=== PATIENT | female | born 1990 | race Caucasian/White ===

== ENCOUNTER 2016-11-23 07:51 | Inpatient (IN) | payer BC ==
[~2016-11-23] VITALS: Ht 165.1 cm; Wt 88.6 kg
[~2016-11-23 07:51] MED LIST: OXYTOCIN 10 UNIT INJ IM ONE
[2016-11-23] MEDS ORDERED: OXYTOCIN 10 UNIT INJ ONE (07:54)
[2016-11-23] MEDS ORDERED: LIDOCAINE 1% (MPF) 30 ML INJ ONE (07:58)
[2016-11-23] MEDS ORDERED: LACTATED RINGER'S 1,000 ML IV PRN (08:00)
[2016-11-23] MEDS: IBUPROFEN 600 MG TAB PO SCH ×3 (08:00→17:42)
[2016-11-23] MEDS ORDERED: LACTATED RINGER'S 1,000 ML IV SCH (08:01)
[2016-11-23 08:18] LABS: ADD SCAN DIFF NO
[2016-11-23 08:21] LABS: BASOPHILS % 0.3 % (0.0-2.0); EOSINOPHILS # 0.1 10^3/ul (0.0-0.5); EOSINOPHILS % 0.7 % (0.0-7.0); HEMATOCRIT 37.9 % (37.0-47.0); LYMPHOCYTES # 2.3 10^3/ul (0.8-2.9); LYMPHOCYTES % 25.3 % (15.0-51.0); MEAN CORPUSCULAR HEMOGLOBIN 28.9 pg (29.0-33.0); MEAN CORPUSCULAR HGB CONC 34.3 g/dl (32.0-37.0); MEAN CORPUSCULAR VOLUME 84.2 fl (82.0-101.0); MEAN PLATELET VOLUME 10.1 fl (7.4-10.4); MONOCYTE # 0.4 10^3/ul (0.3-0.9); MONOCYTES % 4.6 % (0.0-11.0); NEUTROPHIL # 6.3 10^3/ul (1.6-7.5); NEUTROPHILS % 68.7 % (39.0-77.0); PLATELET COUNT 184 10^3/UL (140-415); RED CELL DISTRIBUTION WIDTH 13.2 % (11.5-14.5); WHITE BLOOD COUNT 9.1 10^3/ul (4.8-10.8)
[2016-11-23] MEDS ORDERED: OXYTOCIN 30 UNITS/LR 500 ML IV SCH ×2 (08:30)
[2016-11-23] MEDS ORDERED: MISOPROSTOL 200 MCG TAB PR PRN ×2 (08:30→11:00)
[2016-11-23] MEDS ORDERED: CARBOPROST 250 MCG INJ IM PRN ×2 (08:30→11:00)
[2016-11-23] MEDS ORDERED: OXYTOCIN 30 UNITS/LR 500 ML IV PRN ×2 (08:30→11:00)
[2016-11-23] MEDS ORDERED: METHYLERGONOVINE 0.2 MG INJ IM PRN ×2 (08:30→11:00)
[2016-11-23] MEDS ORDERED: LIDOCAINE 1% (MPF) 30 ML INJ INJ PRN (08:30)
[2016-11-23] MEDS ORDERED: IBUPROFEN 600 MG TAB PO PRN (08:30)
--- NOTE | 2016-11-23 08:48 | HP ---
Date/Time of Note Date/Time of Note DATE: 11/23/16 TIME: 08:42 OB - History Hx of Present Chief Complaint: contractions Estimated Due Date: Nov 30, 2016 : 2 Para: 1 Spontaneous : 0 Therapeutic : 0 Care: Good Care Ultrasounds: Normal mid trimester US Obstetrical Complications: None Medical Complications: None Past Family/Social History * Past Medical, Surgical, Family and Obstetric Histories reviewed from chart. GBS Status: Unknown OB Admission Exam Physical Exam HEENT: WNL Heart: Rhythm Normal Lungs: Clear Abdomen: WNL Extremities: Normal Cervical Dilatation: 9cm Effacement: 100% Station: -1 Membranes: Intact Heart Rate: 130's Accelerations: Accelerations Present Last 72 hours Lab Results CBC & BMP 11/23/16 08:00 OB Assessment/Plan Reason for admission: active labor Plan: Expectant Management ISAIAH LÓPEZ MD Nov 23, 2016 08:47
[2016-11-23 08:54] VITALS: Ht 165.1 cm; Wt 88.6 kg
[2016-11-23 08:55] VITALS: BP 126/75; RESP 18
[2016-11-23 08:55] LABS: INR 0.88; PROTIME 11.9 Sec (12.2-14.2); PT RATIO 0.9
[2016-11-23] MEDS ORDERED: WITCH HAZEL/GLYCERIN PAD PR PRN (11:00)
[2016-11-23] MEDS ORDERED: BENZOCAINE 20% 56 ML SPRAY TOP PRN (11:00)
[2016-11-23] MEDS ORDERED: DIBUCAINE 1% 30 GM OINT PR PRN (11:00)
[2016-11-23] MEDS ORDERED: ACETAMINOPHEN 325 MG TAB PO PRN (11:00)
[2016-11-23] MEDS ORDERED: ACETAMINOPHEN/CODEINE #3 TAB PO PRN (11:00)
[2016-11-23] MEDS: LACTATED RINGER'S 1,000 ML IV* SCH ×2 (12:24→18:38)
--- NOTE | 2016-11-23 13:08 | LDN ---
Date/Time of Note Date/Time of Note DATE: 11/23/16 TIME: 13:05 Delivery Summary called by RN due to urgent feeling pushing by the patient. Primary attending was in his way and may not be able to attend for delivery. Patient 's exam: C/C + 3 Placenta Delivered: Spontaneously Meconium: none Episiotomy: No Perineal laceration: 2 Laceration repair: repaired using 2-0 vicryl Anesthesia type: None Estimated blood loss: 100 Sponge & Needle done & correct: Yes All needle counts correct: Yes Any foreign bodies felt in the: No Problems: Infant Delivery Information Apgars 1 Minute: 8 5 Minute: 9 Suctioning Nose & mouth suctioned at [place]: Yes Delee suction performed: Yes Umbilical Cord Umbilical cord with: 3 Vessels Cord presentations: no nuchal cord Cord Blood was obtained: Yes LILY MOLINA MD Nov 23, 2016 13:08
[2016-11-23 16:00] VITALS: BP 116/64; RESP 18
[2016-11-23 20:00] VITALS: BP 121/71; PULSE 76; RESP 16
[2016-11-24] MEDS: LACTATED RINGER'S 1,000 ML IV* SCH ×3 (02:38→18:38)
[2016-11-24 04:00] VITALS: BP 108/61; PULSE 67; RESP 18
[2016-11-24 07:54] LABS: ADD SCAN DIFF NO
[2016-11-24 08:09] LABS: BASOPHIL # 0.1 10^3/ul (0.0-0.1); BASOPHILS % 0.5 % (0.0-2.0); EOSINOPHILS # 0.1 10^3/ul (0.0-0.5); EOSINOPHILS % 0.8 % (0.0-7.0); HEMATOCRIT 37.1 % (37.0-47.0); HEMOGLOBIN 12.5 g/dl (12.0-16.0); LYMPHOCYTES # 2.3 10^3/ul (0.8-2.9); LYMPHOCYTES % 21.3 % (15.0-51.0); MEAN CORPUSCULAR HEMOGLOBIN 28.5 pg (29.0-33.0); MEAN CORPUSCULAR HGB CONC 33.7 g/dl (32.0-37.0); MEAN CORPUSCULAR VOLUME 84.5 fl (82.0-101.0); MEAN PLATELET VOLUME 10.6 fl (7.4-10.4); MONOCYTE # 0.6 10^3/ul (0.3-0.9); MONOCYTES % 5.5 % (0.0-11.0); NEUTROPHIL # 7.9 10^3/ul (1.6-7.5); NEUTROPHILS % 71.5 % (39.0-77.0); PLATELET COUNT 173 10^3/UL (140-415); RED BLOOD COUNT 4.39 10^6/ul (4.20-5.40); RED CELL DISTRIBUTION WIDTH 13.2 % (11.5-14.5)
[2016-11-24 08:20] VITALS: BP 99/62; PULSE 72; RESP 16
[2016-11-24] MEDS: SENNA/DOCUSATE NA (8.6MG/50MG) TAB PO SCH ×3 (10:05→21:32)
[2016-11-24] MEDS: IBUPROFEN 600 MG TAB PO SCH ×3 (12:14→18:11)
[2016-11-24 15:33] VITALS: BP 116/71; PULSE 87; RESP 16
--- NOTE | 2016-11-24 18:50 | DS ---
Date/Time of Note Date/Time of Note DATE: 11/24/16 TIME: 18:49 Obstetrical Discharge Record Final Diagnosis Final Diagnosis: Term delivered Vaginal Delivery Obstetrical Delivery: Spontaneous, Laceration, Repaired Condition on Discharge Physical Assessment Voiding: Yes Bowel Movement: Yes Breast: Soft, non-tender Fundus: Firm Calf Tenderness: No Patient Condition: Stable ISAIAH LÓPEZ MD Nov 24, 2016 18:50
[2016-11-24 20:00] VITALS: BP 119/72; PULSE 70; RESP 18
[2016-11-25] MEDS: IBUPROFEN 600 MG TAB PO SCH ×2 (00:39→06:20)
[2016-11-25] MEDS: LACTATED RINGER'S 1,000 ML IV* SCH (02:38)
[2016-11-25 04:00] VITALS: BP 118/73; PULSE 72; RESP 18
[2016-11-25 08:30] VITALS: BP 114/69; PULSE 74; RESP 16
[2016-11-25] MEDS ORDERED: DIPHTH/TET/ACEL PERTUSS (ADULT) 0.5 ML VIAL IM* ONE (09:00)
[2016-11-25] MEDS: SENNA/DOCUSATE NA (8.6MG/50MG) TAB PO SCH (10:00)
== END 2016-11-25 12:25 | disposition home or self-care (01) | DRG 775 ==
LOC: L-D 07:51 → PP1 10:41 → EDSTATUS 11-30 07:50
PROVIDERS: ADMIT Obstetrics & Gynecology; ATTEND Obstetrics & Gynecology
PROC: 10E0XZZ Delivery of Products of Conception, External Approach (ICD-10-PCS; principal; 2016-11-23)
PROC: 0KQM0ZZ Repair Perineum Muscle, Open Approach (ICD-10-PCS; 2016-11-23)
PROC: 3E0234Z Introduction of Serum, Toxoid and Vaccine into Muscle, Percutaneous Approach (ICD-10-PCS; 2016-11-25)
DX: O70.1 Second degree perineal laceration during delivery (principal); Z37.0 Single live birth; Z23 Encounter for immunization; Z3A.39 39 weeks gestation of pregnancy
CPT/HCPCS: 85025; 85610; 85730; 86592; 86900; 86901; 87340; 90715; J2590; J7120

== ENCOUNTER 2018-09-01 10:39 | Emergency (ER) | payer BC ==
[~2018-09-01] VITALS: Ht 165.1 cm; Wt 80.0 kg
[2018-09-01 10:44] VITALS: BP 114/59; PULSE 62; RESP 16; Ht 165.1 cm; Wt 80.0 kg
[2018-09-01] MEDS ORDERED: BEN25 PO (11:43)
[2018-09-01] MEDS ORDERED: CETI1TAB6 PO (11:43)
--- NOTE | 2018-09-01 11:45 | ERD ---
ER Documentation Chief Complaint Chief Complaint pt bib self with c/o bilat ear pain, sinus pressure x 2 wks HPI 27-year-old female is here complaining of allergies symptoms including itchiness in her throat and ears and eyes. No fever. No cough. Has not tried any other medications. ROS All systems reviewed and are negative except as per history of present illness. Medications Home Meds Active Scripts Cetirizine/Pseudoephedrine (Zyrtec-D) 5-120 Mg Tab.er.12h, 1 TAB PO Q12, #30 TAB Prov:JUAN JOHNSON PA-C 09/01/18 Diphenhydramine Hcl* (Benadryl*) 25 Mg Cap, 25 MG PO Q6, #30 CAP Prov:JUAN JOHNSON PA-C 09/01/18 Allergies Allergies: Coded Allergies: No Known Allergies (Verified Allergy, Unknown, 08/09/16) PMhx/Soc Medical and Surgical Hx: pt denies Medical Hx, pt denies Surgical Hx History of Surgery: No Anesthesia Reaction: No Hx Neurological Disorder: No Hx Respiratory Disorders: No Hx Cardiac Disorders: No Hx Psychiatric Problems: No Hx Miscellaneous Medical Probl: No Hx Alcohol Use: Yes (Occ) Hx Substance Use: No Hx Tobacco Use: Yes (Occ) Smoking Status: Current some day smoker FmHx Family History: No diabetes Physical Exam Vitals Vital Signs Date Temp Pulse Resp B/P (MAP) Pulse Ox O2 O2 Flow FiO2 Time Delivery Rate 09/01/18 98.0 62 16 114/59 99 10:44 (77) Physical Exam Const: No acute distress Head: Atraumatic Eyes: Normal Conjunctiva ENT: Normal External Ears, Nose and Mouth. Neck: Full range of motion. No meningismus. Resp: Clear to auscultation bilaterally Cardio: Regular rate and rhythm, no murmurs Procedures/MDM Patient presents with symptoms related to seasonal allergies. Prescription for Benadryl and Zyrtec given. Exam is normal. Patient counseled regarding my diagnostic impression and care plan. Prior to discharge all questions answered. Pt agrees with treatment plan and understands strict return precautions. Pt is instructed to follow up with primary care provider within 24-48 hours. Precautionary instructions provided including instructions to return to the ER if not improving or for any worsening or changing symptoms or concerns. Departure Diagnosis: Primary Impression: Seasonal allergies Condition: Stable Patient Instructions: Allergic Rhinitis Additional Instructions: Llame al doctor MAANA y prashanth serenity DAYO PARA DENTRO DE 1-2 YUSUF.Dgale a la secretaria que nosotros le instruimos hacer esta dayo.Avise o llame si agarwal condicin se empeora antes de la dayo. Regresa aqui si peor o no mejor.Call your primary care doctor TOMORROW for an appointment during the next 1-2 days.See the doctor sooner or return here if your condition worsens before your appointment time. JUAN JOHNSON PA-C Sep 01, 2018 11:45
== END 2018-09-01 12:09 | disposition home or self-care (01) ==
LOC: FTE 10:39
DX: J30.2 Other seasonal allergic rhinitis (principal)
CPT/HCPCS: 99282

== ENCOUNTER 2018-12-31 11:32 | Emergency (ER) | payer BC ==
[~2018-12-31] VITALS: Ht 165.1 cm; Wt 85.8 kg
[~2018-12-31 11:32] MED LIST changes: +BEN25 PO; +CETI1TAB6 PO; +NAPR-985 PO; -OXYTOCIN 10 UNIT INJ IM ONE
[2018-12-31 11:35] VITALS: RESP 16; Ht 165.1 cm; Wt 85.8 kg
[2018-12-31 12:45] VITALS: BP 146/78; PULSE 72
--- NOTE | 2018-12-31 13:10 | ERD ---
ER Documentation Chief Complaint Chief Complaint LUMP ON LT SIDE OF NECK X 6 MO W/ PAIN THERE TODAY. WEIRD FEELING IN HEAD HPI 28-year-old female presenting with a lump on the left side of her neck x7 months. Patient states it is mildly painful and she noted sometimes it gets larger and sometimes it gets smaller. She occasionally has a headache. She denies any vomiting. Denies use of medications. Denies other medical problems. NKDA. Surgical history denies. Social history smokes 5 cigarettes a day ROS All systems reviewed and are negative except as per history of present illness. Medications Home Meds Active Scripts Naproxen* (Naprosyn*) 500 Mg Tablet, 500 MG PO BID PRN for PAIN AND/OR INFLAMMATION, #30 TAB Prov:JASON ROCA PA-C 12/31/18 Cetirizine/Pseudoephedrine (Zyrtec-D) 5-120 Mg Tab.er.12h, 1 TAB PO Q12, #30 TAB Prov:JUAN JOHNSON PA-C 09/01/18 Diphenhydramine Hcl* (Benadryl*) 25 Mg Cap, 25 MG PO Q6, #30 CAP Prov:JUAN JOHNSON PA-C 09/01/18 Allergies Allergies: Coded Allergies: No Known Allergies (Verified Allergy, Unknown, 08/09/16) PMhx/Soc History of Surgery: No Anesthesia Reaction: No Hx Neurological Disorder: No Hx Respiratory Disorders: No Hx Cardiac Disorders: No Hx Psychiatric Problems: No Hx Miscellaneous Medical Probl: No Hx Alcohol Use: Yes (Occ) Hx Substance Use: No Hx Tobacco Use: Yes (Occ) Smoking Status: Current some day smoker FmHx Family History: No diabetes, No coronary disease, No other Physical Exam Vitals Vital Signs Date Temp Pulse Resp B/P (MAP) Pulse Ox O2 O2 Flow FiO2 Time Delivery Rate 12/31/18 72 146/78 12:45 (100) 12/31/18 97.8 94 16 154/70 100 11:35 (98) Physical Exam GENERAL: The patient is well-appearing, well-nourished, in no acute distress HEENT: Atraumatic. Conjunctivae are pink. Pupils equal, round, and reactive to light. There is no scleral icterus. Tympanic membranes clear bilaterally. Oropharynx clear. NECK: Small nodule noted on left-sided neck in line with the cervical lymph nodes. Pea-sized shape with no irregularities noted. No fluctuance and no erythema. No tenderness to palpation. CHEST: Clear to auscultation bilaterally. There are no rales, wheezes or rhonchi. HEART: Regular rate and rhythm. No murmurs, clicks, rubs or gallops. SKIN: There is no apparent rash or petechiae. The skin is warm and dry. Procedures/MDM MDM: 28-year-old female presenting with nodule to the left side of her neck. I believe this is a cervical lymph nodes I have low suspicion for metastatic condition or infectious process. I do not feel there is indication for blood work or imaging. Patient will be discharged and told to apply warm compresses and take medication if pain develops. Patient is discharged with strict ER precautions and recommended follow-up with primary care. All questions answered at discharge Departure Diagnosis: Primary Impression: Lymph node enlargement Condition: Stable Patient Instructions: When Your Child Has Swollen Lymph Nodes Referrals: [facility] YOU HAVE RECEIVED A MEDICAL SCREENING EXAM AND THE RESULTS INDICATE THAT YOU DO NOT HAVE A CONDITION THAT REQUIRES URGENT TREATMENT IN THE EMERGENCY DEPARTMENT. FURTHER EVALUATION AND TREATMENT OF YOUR CONDITION CAN WAIT UNTIL YOU ARE SEEN IN YOUR DOCTORS OFFICE WITHIN THE NEXT 1-2 DAYS. IT IS YOUR RESPONSIBILITY TO MAKE AN APPOINTMENT FOR FOLOW-UP CARE. IF YOU HAVE A PRIMARY DOCTOR --you should call your primary doctor and schedule an appointment IF YOU DO NOT HAVE A PRIMARY DOCTOR YOU CAN CALL OUR PHYSICIAN REFERRAL HOTLINE AT IF YOU CAN NOT AFFORD TO SEE A PHYSICIAN YOU CAN CHOSE FROM THE FOLLOWING [facility] [address] [facility] [address] [facility] [address] [facility] [address] [facility] [address] [facility] [facility]. [address] Additional Instructions: FOLLOW UP WITH YOUR PRIMARY CARE PHYSICIAN TOMORROW.Return to this facility if you are not improving as expected. JASON ROCA PA-C Dec 31, 2018 13:10
== END 2018-12-31 12:46 | disposition home or self-care (01) ==
LOC: FTE 11:32
DX: R59.0 Localized enlarged lymph nodes (principal); F17.210 Nicotine dependence, cigarettes, uncomplicated
CPT/HCPCS: 99282